=== PATIENT | male | born 1980 | race African-American/Black ===

== ENCOUNTER 2016-08-13 22:28 | Inpatient (IN) | payer MEDICAID, OTHER ==
[~2016-08-13] VITALS: Ht 177.8 cm; Wt 84.0 kg
[2016-08-13] MEDS ORDERED: MIRT30 PO (22:41)
[2016-08-13] MEDS ORDERED: ARIP5TAB9 PO (22:41)
[2016-08-13 22:55] LABS: BASOPHILS % (AUTO) 0.5 % (0.0-2.0); EOSINOPHILS % (AUTO) 1.9 % (1.0-6.0); HEMATOCRIT 40.9 % (41-53); HEMOGLOBIN 13.4 g/dL (13.5-17.5); LYMPHOCYTES # (AUTO) 3.5 K/uL (1.0-4.8); MEAN CORPUSCULAR HEMOGLOBIN 29.1 pg (26.0-34.0); MEAN CORPUSCULAR HGB CONC 32.7 G/dL (31.0-37.0); MEAN CORPUSCULAR VOLUME 89 fL (80-100); MONOCYTES # (AUTO) 0.8 K/uL (0.1-1.0); MONOCYTES % (AUTO) 8.4 % (2.0-9.0); NEUTROPHILS # (AUTO) 4.7 K/uL (1.8-7.7); NEUTROPHILS % (AUTO) 51.2 % (40.0-70.0); PLATELET COUNT (AUTO) 232 K/uL (150-450); RED CELL DISTRIBUTION WIDTH 13.5 % (11.5-14.5); WHITE BLOOD COUNT (AUTO) 9.2 K/uL (4.5-11.0)
[2016-08-13 23:02] LABS: ANION GAP 10 mmol/L (8-16); CALCIUM, TOTAL 8.3 mg/dL (8.8-10.5); CARBON DIOXIDE 27 mmol/L (22-29); CHLORIDE 107 mmol/L (98-107); CREATININE 1.07 mg/dL (0.60-1.30); GLOMERULAR FILTR. RATE CALC > 60 mL/min (>60); POTASSIUM 4.2 mmol/L (3.5-5.1); SODIUM SERUM 144 mmol/L (136-145); UREA NITROGEN, BLOOD 24 mg/dL (7-18)
[2016-08-13 23:08] LABS: ALANINE AMINOTRANSFERASE 28 U/L (12-78); ALBUMIN 3.6 g/dL (3.4-5.0); ASPARTATE AMINOTRANSFERASE 14 U/L (15-37); BILIRUBIN,TOTAL 0.7 mg/dL (0.1-1.0); TOTAL PROTEIN, SERUM 7.1 g/dL (6.4-8.2)
[2016-08-13] MEDS ORDERED: MIRTAZAPINE 30 MG TABLET PO ONE (23:30)
[2016-08-14] MEDS ORDERED: ZOLPIDEM TARTRATE 10 MG TABLET PO PRN
[2016-08-14 00:01] LABS: APPEARANCE,URINE CLEAR (CLEAR); GLUCOSE, URINE (UA) NEGATIVE (NEGATIVE); KETONES,URINE NEGATIVE (NEGATIVE); LEUKOCYTE ESTERASE ,URINE NEGATIVE (NEGATIVE); OCCULT BLOOD,URINE NEGATIVE (NEGATIVE); PROTEIN,URINE NEGATIVE (NEGATIVE)
[2016-08-14 00:07] LABS: ADD UA MICROSCOPIC NO
[2016-08-14 13:51] VITALS: BP 120/68
[2016-08-14 16:27] VITALS: BP 120/72
[2016-08-14] MEDS ORDERED: PETROLATUM,WHITE 71 GM JELLY TP PRN (19:15)
[2016-08-14] MEDS ORDERED: ONDANSETRON HCL 4 MG TABLET PO PRN (19:15)
[2016-08-14] MEDS ORDERED: MAG HYDROX/AL HYDROX/SIMETH ES 30 ML SUSPENSION UDCUP PO PRN (19:15)
[2016-08-14] MEDS ORDERED: ACETAMINOPHEN 325 MG TABLET PO PRN (19:15)
[2016-08-14] MEDS ORDERED: CloNIDine HCL 0.1 MG TABLET PO PRN (19:15)
[2016-08-14] MEDS ORDERED: MAGNESIUM HYDROXIDE SUSPENSION 30 ML UDCUP PO PRN (19:15)
[2016-08-14] MEDS ORDERED: BENZOCAINE/MENTHOL LOZENGE MM PRN (19:15)
[2016-08-14] MEDS ORDERED: ALBUTEROL SULFATE HFA 90 MCG/PUFF 8 GM INHALER IH PRN (19:15)
[2016-08-14] MEDS ORDERED: BACITRACIN 28.4 GM OINTMENT TP PRN (19:15)
[2016-08-14] MEDS ORDERED: IBUPROFEN 600 MG TABLET PO PRN (19:15)
[2016-08-14] MEDS ORDERED: LOPERAMIDE HCL 2 MG CAPSULE PO PRN (19:15)
[2016-08-14] MEDS: HALOPERIDOL 5 MG TABLET PO PRN (20:28)
[2016-08-14] MEDS: LORazepam 2 MG TABLET PO PRN (20:28)
[2016-08-15 06:24] VITALS: BP 136/82
[2016-08-15 08:44] VITALS: BP 119/67
[2016-08-15] MEDS: NICOTINE 14 MG/24 HOUR PATCH TD SCH (09:36)
[2016-08-15] MEDS ORDERED: ARIPiprazole 10 MG TABLET PO SCH (10:00)
[2016-08-15] MEDS: HALOPERIDOL 5 MG TABLET PO SCH ×2 (12:51→20:37)
[2016-08-15] MEDS: HALOPERIDOL 5 MG TABLET PO PRN (15:57)
[2016-08-15] MEDS: LORazepam 2 MG TABLET PO PRN (15:57)
[2016-08-15 16:12] VITALS: BP 125/69
[2016-08-15] MEDS: MIRTAZAPINE 30 MG TABLET PO SCH (20:37)
[2016-08-15] MEDS ORDERED: MIRTAZAPINE 30 MG TABLET PO SCH (21:00)
[2016-08-16 06:32] VITALS: BP 129/76
[2016-08-16 08:46] VITALS: BP 103/63
[2016-08-16] MEDS: HALOPERIDOL 5 MG TABLET PO SCH ×2 (08:53→20:21)
[2016-08-16] MEDS: NICOTINE 14 MG/24 HOUR PATCH TD SCH (09:30)
[2016-08-16 16:07] VITALS: BP 112/68
[2016-08-16] MEDS: MIRTAZAPINE 30 MG TABLET PO SCH (20:21)
[2016-08-17 06:26] VITALS: BP 110/63
[2016-08-17] MEDS: NICOTINE 14 MG/24 HOUR PATCH TD SCH (08:51)
[2016-08-17] MEDS: HALOPERIDOL 5 MG TABLET PO SCH ×2 (08:51→20:17)
[2016-08-17 09:34] VITALS: BP 107/64
[2016-08-17 16:10] VITALS: BP 110/70
[2016-08-17] MEDS: HALOPERIDOL 5 MG TABLET PO PRN (16:43)
[2016-08-17] MEDS: LORazepam 2 MG TABLET PO PRN (16:43)
[2016-08-17] MEDS: MIRTAZAPINE 30 MG TABLET PO SCH (20:16)
[2016-08-18 06:43] VITALS: BP 120/81
[2016-08-18] MEDS: HALOPERIDOL 5 MG TABLET PO SCH ×2 (08:36→20:46)
[2016-08-18] MEDS: NICOTINE 14 MG/24 HOUR PATCH TD SCH (08:37)
[2016-08-18 08:44] VITALS: BP 114/62
[2016-08-18 16:13] VITALS: BP 118/68
[2016-08-18] MEDS: MIRTAZAPINE 30 MG TABLET PO SCH (20:46)
[2016-08-19 05:54] VITALS: BP 110/70
[2016-08-19 08:10] VITALS: BP 115/61
[2016-08-19] MEDS: LORazepam 2 MG TABLET PO PRN (08:44)
[2016-08-19] MEDS: NICOTINE 14 MG/24 HOUR PATCH TD SCH (08:44)
[2016-08-19] MEDS: HALOPERIDOL 5 MG TABLET PO SCH ×2 (08:44→20:51)
[2016-08-19 16:00] VITALS: BP 106/64
[2016-08-19] MEDS: MIRTAZAPINE 30 MG TABLET PO SCH (20:51)
[2016-08-20 05:49] VITALS: BP 112/65
[2016-08-20 08:00] VITALS: BP 103/72
[2016-08-20] MEDS: HALOPERIDOL 5 MG TABLET PO SCH ×2 (09:34→20:26)
[2016-08-20] MEDS: LORazepam 2 MG TABLET PO PRN (09:34)
[2016-08-20] MEDS: NICOTINE 14 MG/24 HOUR PATCH TD SCH (09:35)
[2016-08-20 16:00] VITALS: BP 112/64
[2016-08-20] MEDS: MIRTAZAPINE 30 MG TABLET PO SCH (20:26)
[2016-08-21 07:14] VITALS: BP 119/70
[2016-08-21 09:03] VITALS: BP 101/61
[2016-08-21] MEDS: LORazepam 2 MG TABLET PO PRN ×2 (09:13→16:47)
[2016-08-21] MEDS: HALOPERIDOL 5 MG TABLET PO SCH ×2 (09:13→20:25)
[2016-08-21] MEDS: NICOTINE 14 MG/24 HOUR PATCH TD SCH (09:14)
[2016-08-21 16:06] VITALS: BP 131/75
[2016-08-21] MEDS: HALOPERIDOL 5 MG TABLET PO PRN (16:47)
[2016-08-21] MEDS: MIRTAZAPINE 30 MG TABLET PO SCH (20:25)
[2016-08-22 06:02] VITALS: BP 116/67
[2016-08-22 08:23] VITALS: BP 107/62
[2016-08-22] MEDS: NICOTINE 14 MG/24 HOUR PATCH TD SCH (09:00)
[2016-08-22] MEDS: HALOPERIDOL 5 MG TABLET PO SCH (09:14)
[2016-08-22] MEDS ORDERED: HALO5 PO (10:13)
== END 2016-08-22 11:00 | disposition home or self-care (01) | DRG 750 ==
LOC: EEVIPCON 22:31 → EMS 22:31 → B3A 08-14 12:17 → EMS 08-14 12:49
PROC: GZHZZZZ Group Psychotherapy (ICD-10-PCS; principal; 2016-08-15)
DX: F25.1 Schizoaffective disorder, depressive type (principal); R45.851 Suicidal ideations; S21.119A Laceration without foreign body of unspecified front wall of thorax without penetration into thoracic cavity, initial encounter; Z59.0 Homelessness; F15.10 Other stimulant abuse, uncomplicated; S61.512A Laceration without foreign body of left wrist, initial encounter; F17.210 Nicotine dependence, cigarettes, uncomplicated; F43.10 Post-traumatic stress disorder, unspecified; F41.9 Anxiety disorder, unspecified; G47.00 Insomnia, unspecified; Z71.6 Tobacco abuse counseling; Z91.5 Personal history of self-harm; Z79.899 Other long term (current) drug therapy; Z71.51 Drug abuse counseling and surveillance of drug abuser; Z71.41 Alcohol abuse counseling and surveillance of alcoholic; Z65.3 Problems related to other legal circumstances; Y93.89 Activity, other specified; Y92.89 Other specified places as the place of occurrence of the external cause; X78.8XXA Intentional self-harm by other sharp object, initial encounter
CPT/HCPCS: 87081; 99285; G0480